=== PATIENT | male | born 1970 | race African-American/Black ===

== ENCOUNTER 2019-06-20 18:56 | Emergency (ER) | payer SELFPAY ==
[2019-06-20 19:11] VITALS: BP 147/76
--- NOTE | 2019-06-20 19:43 | ER Document Report ---
ED Oral Problem - General Chief Complaint: Toothache Stated Complaint: TOOTH PAIN Time Seen by Provider: 06/20/19 19:30 Primary Care Provider: [facility] [Provider Group] - Follow up in 1 week - HPI Notes: 49-year-old male to the emergency department with complaints of bilateral lower tooth ache that has been ongoing for several months but has gotten acutely worse in the past several days. States several days ago he broke his left bottom tooth and he has had pain since. He states the pain radiates up into his ears and down the front of his neck into his chest. He denies any drooling, fevers, chills, facial swelling, difficulty breathing, inability to open the mouth. He is tried [id number] medicine without any benefit. He has a plan to follow-up with dentist but he does not have dental insurance. - Related Data Allergies/Adverse Reactions: ibuprofen [From Motrin] Adverse Reaction (Verified 06/20/19 19:29) tramadol Adverse Reaction (Verified 06/20/19 19:32) Past Medical History - General Information source: Patient - Social History Smoking Status: Current Every Day Smoker Frequency of alcohol use: None Drug Abuse: None Family History: Reviewed & Not Pertinent Patient has suicidal ideation: No Patient has homicidal ideation: No Review of Systems - Review of Systems Constitutional: denies: Chills, Fever EENT: See HPI, Dental problem Cardiovascular: denies: Palpitations, Syncope, Dizziness, Lightheaded Respiratory: denies: Cough, Short of breath Gastrointestinal: denies: Abdomen distended, Abdominal pain, Diarrhea, Nausea, Vomiting Musculoskeletal: No symptoms reported Skin: No symptoms reported Hematologic/Lymphatic: No symptoms reported Neurological/Psychological: No symptoms reported -: Yes All other systems reviewed and negative Physical Exam - Vital signs Vitals: Temp Pulse Resp BP Pulse Ox 98.5 F 75 18 147/76 H 100 06/20/19 19:05 06/20/19 19:05 06/20/19 19:05 06/20/19 19:05 06/20/19 19:05 - General General appearance: Appears well, Alert In distress: None - HEENT Head: Normocephalic, Atraumatic Eyes: Normal Pupils: PERRL Ears: Normal External canal: Normal Tympanic membrane: Normal Sinus: Normal Nasal: Normal Mouth/Lips: Caries - Severe dentition throughout. However tooth #2 and tooth #18 are severely decayed down to the gumline. Gums are slightly erythematous and edematous but no jareth drainable dental abscess. There is tenderness to palpation along the gumline. There is no Marek's angina. Uvula is midline. There is no trismus. Airway is grossly patent. Patient is not drooling. Pharynx: Normal. No: Uvular edema, Potential airway comprom. Neck: Normal, Supple. No: Lymphadenopathy, Meningismus - Respiratory Respiratory status: No respiratory distress Chest status: Nontender Breath sounds: Normal Chest palpation: Normal - Cardiovascular Rhythm: Regular Heart sounds: Normal auscultation Murmur: No - Back Back: Normal, Nontender - Neurological Neuro grossly intact: Yes Cognition: Normal Orientation: AAOx4 Jordi Coma Scale Eye Opening: Spontaneous [place] Coma Scale Verbal: Oriented Jordi Coma Scale Motor: Obeys Commands Jordi Coma Scale Total: 15 Speech: Normal Cranial nerves: Normal Cerebellar coordination: Normal Motor strength normal: LUE, RUE, LLE, RLE Additional motor exam normals: Equal stenciler. No: Pronator drift Sensory: Normal - Psychological Associated symptoms: Normal affect, Normal mood - Skin Skin Temperature: Warm Skin Moisture: Dry Skin Color: Normal Course - Re-evaluation Re-evalutation: 06/20/19 Impression: Dental caries, dental pain. No drainable dental abscess appreciated on exam. Will send him with antibiotics, pain medicine, Peridex. Have encouraged follow-up with the dentist and close fashion. Encouraged to return if any worsening symptoms such as facial swelling, drooling inability to open mouth, airway compromise, or any other concerns. Patient agrees with the plan. - Vital Signs Vital signs: Temp Pulse Resp BP Pulse Ox 98.5 F 75 18 147/76 H 100 06/20/19 19:29 06/20/19 19:29 06/20/19 19:29 06/20/19 19:29 06/20/19 19:29 Discharge - Discharge Clinical Impression: Dental caries, Toothache Condition: Stable Disposition: HOME, SELF-CARE Instructions: Clindamycin ([facility]), Toothache ([facility]) Additional Instructions: COMPLETE ALL ANTIBIOTICS. RETURN IF WORSENING SYMPTOMS. PUSH FLUIDS. FOLLOW UP WITH DENTIST WITHOUT FAIL. Prescriptions: Clindamycin HCl 300 mg PO TID #30 capsule Hydrocodone/Acetaminophen [[place] 5-325 mg Tablet] 1 tab PO Q6H #9 tablet Chlorhexidine Gluconate [Peridex] 15 ml MM TID #420 ml Referrals: [facility] [Provider Group] - Follow up in 1 week
== END 2019-06-20 19:47 | disposition home or self-care (01) ==
LOC: ER 18:56
DX: K02.9 Dental caries, unspecified (principal); K08.89 Other specified disorders of teeth and supporting structures; F17.200 Nicotine dependence, unspecified, uncomplicated
CPT/HCPCS: 99282